=== PATIENT | male | born 2000 | race Caucasian/White ===

== ENCOUNTER 2021-02-17 18:55 | Emergency (ER) | payer OTHER ==
[~2021-02-17 18:55] MED LIST: IBUPROFEN600 MG PO
== END 2021-02-17 20:36 | disposition left against medical advice (07) ==
LOC: ER1 18:55
DX: Z53.21 Procedure and treatment not carried out due to patient leaving prior to being seen by health care provider (principal)
CPT/HCPCS: 73140

== ENCOUNTER 2021-02-28 20:48 | Emergency (ER) | payer OTHER ==
[2021-02-28] MEDS ORDERED: NAPROSYN500 MG PO (22:30)
== END 2021-02-28 22:50 | disposition home or self-care (01) ==
LOC: ER1 20:48
DX: S82.832A Other fracture of upper and lower end of left fibula, initial encounter for closed fracture (principal); W19.XXXA Unspecified fall, initial encounter
CPT/HCPCS: 73610; 99283